=== PATIENT | female | born 1970 | race Two or more races ===

== ENCOUNTER 2016-10-22 19:24 | Emergency (ER) | payer OTHER ==
--- NOTE | 2016-10-23 07:14 | RAD ---
RIGHT KNEE 4 VIEWS HISTORY: Right knee pain status post injury.. Frontal, lateral, and bilateral oblique views of the right knee. COMPARISON: None. ALIGNMENT: Grossly unremarkable.. JOINT SPACES: Minor narrowing at the medial compartment with minimal osteophyte formation.. JOINT EFFUSION: [id number] effusion.. CALCIFICATIONS: No abnormal calcifications noted. FRACTURE: No displaced acute fracture. IMPRESSION: 1. No malalignment or displaced acute fracture noted.. 2. Early degenerative change medial tibiofemoral compartment. 3. Ktsyx-tl-fsbwicls joint effusion.
== END 2016-10-22 21:42 | disposition home or self-care (01) ==
LOC: ED 19:24
DX: S89.91XA Unspecified injury of right lower leg, initial encounter (principal); E66.9 Obesity, unspecified; X58.XXXA Exposure to other specified factors, initial encounter; Y99.0 Civilian activity done for income or pay

== ENCOUNTER 2016-11-02 17:15 | Emergency (ER) | payer SELFPAY ==
[2016-11-02] MEDS ORDERED: SODIUM CHLORIDE 0.9% 2,000 ML ONE (17:57)
[2016-11-02] MEDS ORDERED: ACETAMINOPHEN 500 MG TABLET ONE (17:58)
--- NOTE | 2016-11-02 18:10 | RAD ---
Name: AMBREEN PHILLIP Exam: Two-view chest Comparison: None Clinical history: Cough and fever Findings: 2 views of the chest are submitted. The heart mediastinum and hilar structures are within normal limits. There is no failure, infiltrate, pleural effusion or pneumothorax. Regional skeleton is within normal limits. Impression: No acute cardiopulmonary process
[2016-11-02 18:16] LABS: ABSOLUTE NEUTROPHIL COUNT 7.4 K/mm3 (1.8-7.7); BASO # 0.1 K/mm3 (0.0-0.2); BASO % 0.6 % (0.2-1.0); EOS # 0.1 (0.0-0.5); EOS % 1.1 % (0.9-2.9); HEMATOCRIT 39.9 % (37.0-47.0); HEMOGLOBIN 13.2 gm/l (12.0-16.0); IMM NEUT% 0.3 % (0-1); LYMPH # 1.2 (1.0-4.8); MEAN CELL VOLUME 88.7 fl (81.0-99.0); MEAN CORPUSCULAR HEMOGLOBIN 29.3 pg (27.0-31.0); MEAN CORPUSCULAR HGB CONC 33.1 g/dl (33.0-37.0); MEAN PLATELET VOLUME 11.6 fl (7.4-10.4); MONO % 10.3 % (4-12); NEUT % 75.7 % (43-75); PLATELET COUNT 159 K/mm3 (130-400); RED CELL DISTRIBUTION WIDTH 12.5 % (11.5-14.5)
[2016-11-02 18:23] LABS: ALB/GLOB RATIO 1.3 (>1.0); ALBUMIN 4.1 gm/dL (3.5-5.7); CALCIUM 9.2 mg/dL (8.6-10.3)
== END 2016-11-02 18:46 | disposition home or self-care (01) ==
LOC: ED 17:15
DX: J11.1 Influenza due to unidentified influenza virus with other respiratory manifestations (principal)
CPT/HCPCS: 83605; 85025; 80053; 84484; 71020; 87804; 99284; 96360; 93005; 99283; A9270; J7030